=== PATIENT | male | born 1970 | race Caucasian/White ===

== ENCOUNTER 2023-10-28 20:10 | Emergency (ER) | payer OTHER, SELFPAY ==
[2023-10-28 20:10] VITALS: BMI 30.3
[2023-10-28 20:24] VITALS: BP 154/99
[2023-10-28 20:52] VITALS: BP 138/97
[2023-10-28 21:00] VITALS: BP 138/89
--- NOTE | 2023-10-28 22:25 | ED.GENMED ---
History of Present Illness
<LOWELL De La Fuente - Last Filed: 10/28/23 22:59>
General
Chief Complaint: Musculo-Skeletal Complaint
Time Seen by Provider: 10/28/23 22:05
History of Present Illness
History of Present Illness:
Pt is a 53 y/o male presenting for neck, shoulder, and arm pain x4 days. He states he was bending into his car and the trunk came down and jammed his head. He states the pain is a 10/10 all the time in his neck, left shoulder, and left arm. He
states it is worse with movement, standing, and driving. He states this happened back in 2021 and he was having similar symptoms. He states he was following with ortho and he had an Xray that showed a herniated disk in his neck. He was taking
gabapentin which controlled the pain and he stopped that in June because the symptoms were gone. He states that he has been taking his gabapentin again since Monday with no relief. He states he has been taking 1800 mg daily as well as a medrol
dose pack that was his mothers, ibuprofen, and icy hot with no relief. He denies any loss of sensation, dizziness, vision changes, LOC, SOB, CP, nausea, vomiting.
Past History
<LOWELL De La Fuente - Last Filed: 10/28/23 22:59>
Past History
ED Past Medical History: None
ED Past Surgical History: None
Phy Exam
<LOWELL De La Fuente - Last Filed: 10/28/23 22:59>
Physical Exam
Physical Exam:
GENERAL: Alert , in no apparent distress
EYE: pupils equal and reactive
Throat: Airway intact, no exudates
NECK: Supple, no significant adenopathy.
CARDIAC: Regular rate and rhythm .
LUNGS: Wheezing heard in all smalls. no acute respiratory distress, no rales/rhonchi
ABDOMEN: Soft, nondistended, nontender, no cvat
NEUROLOGICAL: Alert and oriented, no focal neuro deficits
SKIN: Warm and dry, skin intact.
MUSCULOSKELETAL: Pain with palpation to the paraspinal muscles in the neck. Pain with ROM of the neck and shoulders. Strength 5/5 in all UE. Full ROM in all UE. Sensation intact to UE b/l. 2+ radial pulses b/l.
PSYCH: Normal and appropriate interaction.
Course
<LOWELL De La Fuente - Last Filed: 10/28/23 22:59>
Orders/Labs/Results
Orders:
Orders
10/28/23 22:49
Ketorolac [Toradol] 30 mg IM NOW STA
Vital Signs
Initial and Last Documented VS:
Initial Vital Signs
Temp Pulse Resp BP Pulse Ox
97.8 F 96 20 154/99 98
10/28/23 20:24 10/28/23 20:24 10/28/23 20:24 10/28/23 20:24 10/28/23 20:24
Last Documented Vital Signs
Temp Pulse Resp BP Pulse Ox
97.8 F 96 20 138/89 95
10/28/23 20:24 10/28/23 20:24 10/28/23 20:24 10/28/23 21:00 10/28/23 21:15
<Fran Emmanuel DO - Last Filed: 10/28/23 23:00>
Orders/Labs/Results
Orders:
Orders
10/28/23 22:49
Ketorolac [Toradol] 30 mg IM NOW STA
Vital Signs
Initial and Last Documented VS:
Initial Vital Signs
Temp Pulse Resp BP Pulse Ox
97.8 F 96 20 154/99 98
10/28/23 20:24 10/28/23 20:24 10/28/23 20:24 10/28/23 20:24 10/28/23 20:24
Last Documented Vital Signs
Temp Pulse Resp BP Pulse Ox
97.8 F 96 20 138/89 95
10/28/23 20:24 10/28/23 20:24 10/28/23 20:24 10/28/23 21:00 10/28/23 21:15
<LOWELL De La Fuente - Last Filed: 10/28/23 22:59>
*Radiology
Radiology exam reviewed: other (N/a)
*Pulse Oximetry
Patient hypoxic: no
*EKG
Interpreted by ED Provider?: NA
*Book Illustrator Interpretation
Rate: Book Illustrator- N/A
*Critical Care Note
Total Time (30-74mins, 75-104mins- exclusive of procedures): Not Applicable
ED Attending Note
<LOWELL De La Fuente - Last Filed: 10/28/23 22:59>
-
Portions of this chart may have been created with voice recognition software.� Occasional wrong word or��sound alike� substitutions may have occurred due to the inherent limitations of voice recognition software.
<Fran Emmanuel DO - Last Filed: 10/28/23 23:00>
ED Attending Note
Patient seen and examined by attending physician: Yes
I performed the substantive portion of visit, reviewed & personally made and approve the management plan that is documented in note by myself or KARLENE.: Yes
ED Attending Note:
I have reviewed Shubham's note.
Patient complaining of neck pain rating down his left arm. Patient has a history of similar symptoms and has seen orthopedics for disc herniation. He had been on gabapentin but stopped it because symptoms improved. Pain recently returned after he
had a bump on his head from his trunk door closing on his head. Patient has been taking the gabapentin again without improvement. He states he is taking Tylenol, ibuprofen and took a Medrol Dosepak he received from his mom without any improvement.
Has been trying to make an appointment with his orthopedic surgeon but has not received a call back.
General: Awake, Alert, Oriented X3. No acute distress.
Vitals: unremarkable
Head: Atraumatic
Eyes: Pupils equal, EOMI
Throat: Airway intact, no exudates
Neck: Trachea midline, diffusely tender to palpation
Lungs: Clear and equal b/l
Heart: Regular rate, no murmurs
Abd: Soft, Nontender, No pulsatile mass
Neuro: Cranial nerves intact, muscle strength equal bilaterally
Skin: Warm, dry, no rash
Extremities: pulses equal b/l, no edema
Presentation seems consistent with a cervical radiculopathy. Will provide a small dose of oxycodone as the patient is already taking other forms of medication that I might consider. He needs close follow-up with jacob Panda and is also given
him the contact number for pain management here.
Discharge Plan
Departure
Patient Disposition: Home (Routine Discharge)
Date of Disposition: 10/28/23
Time of Disposition: 22:50
Patient with high blood pressure during this ER visit?: Yes
Condition: Good
Discharge Problem:
Cervical radiculopathy
Instructions: Radiculopathy (DC), BLOOD PRESSURE
Prescriptions:
New
oxycodone 5 mg tablet
5 mg PO Q6H PRN (Reason: Pain) Qty: 8 0RF
No Action
doxycycline hyclate 100 MG capsule
100 mg PO BID Qty: 13 0RF
clindamycin HCl 300 MG capsule
300 mg PO TID Qty: 20 0RF
Referrals:
Rinku Sheikh MD [Active] -
Hamilton Gracia MD [Family Provider] -
Interventions
Interventions:
*Risk Screen - Suicide Last Done: 10/28/23 20:24
*General Assessment Last Done: 10/28/23 20:24
*Neglect/Abuse Screening Last Done: 10/28/23 20:24
ED- Fall Risk Assessment Last Done: 10/28/23 20:24
*ED COVID-19 Vaccine History Last Done: 10/28/23 20:24
Discharge Date and Time
Print Language: POLISH
[2023-10-28] MEDS: TORADOL 30 MG IM (23:02)
[2023-10-28 23:10] VITALS: BP 146/97
== END 2023-10-28 23:11 | disposition home or self-care (01) ==
LOC: EMR 20:10
PROVIDERS: EMERGENCY PHYSICIAN Emergency Medicine; FAMILY PHYSICIAN Internal Medicine
DX: M54.12 Radiculopathy, cervical region (principal)
CPT/HCPCS: 99282